=== PATIENT | male | born 1960 | race Caucasian/White ===

== ENCOUNTER 2017-08-05 13:00 | Inpatient (IN) | payer MEDICARE, OTHER ==
[~2017-08-05] VITALS: Ht 182.9 cm; Wt 93.0 kg
[2017-08-05 19:40] VITALS: BP 120/74
--- NOTE | 2017-08-05 19:40 | NUR ---
PATIENT ADMITTED ON 5250 HOLD FOR DTS.
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
[2017-08-05 20:17] VITALS: BP 120/74
[2017-08-05] MEDS ORDERED: ACETAMINOPHEN 325 MG TABLET PO PRN (20:30)
[2017-08-05] MEDS ORDERED: MAG HYDROX/AL HYDROX/SIMETH 30 ML UDC PO PRN (20:30)
[2017-08-05] MEDS ORDERED: METF500T4 PO (20:38)
[2017-08-05] MEDS ORDERED: LOXA25CA PO (20:38)
[2017-08-05] MEDS ORDERED: BUPR-51 PO (20:38)
[2017-08-05] MEDS ORDERED: LEVO150T8 PO (20:38)
[2017-08-05] MEDS ORDERED: SIMV10TA6 PO (20:38)
[2017-08-05] MEDS ORDERED: THIO5CAP2 PO (20:39)
[2017-08-05] MEDS ORDERED: DIVA500T54 PO (20:39)
[2017-08-05] MEDS ORDERED: IBUP-1482 PO (20:39)
[2017-08-05] MEDS ORDERED: CLIN300C97 PO (20:39)
[2017-08-05] MEDS ORDERED: CLOZ100T PO (20:39)
[2017-08-05] MEDS ORDERED: GLIM2TAB2 PO (20:39)
[2017-08-05] MEDS ORDERED: CITA20TA11 PO (20:39)
[2017-08-05] MEDS ORDERED: TRAM50TA2 PO (20:39)
[2017-08-05] MEDS: TEMAZEPAM 7.5 MG CAPSULE PO PRN (21:53)
--- NOTE | 2017-08-05 21:53 | NUR ---
GPS RN NOTES: PATIENT ALERT AND ORIENTED X4, PATIENT COMPLAINED UNABLE TO SLEEP. PATIENT IS REQUESTING RESTORIL. V/S STABLE. RESTORIL 7.5MG PO GIVEN ORDERED, TOLERATED WELL. WILL CONTINUE TO ASSESS PATIENT SAFETY AND BEHAVIOR [id number] AND MONITOR HOURS OF SLEEP.
[2017-08-06] MEDS ORDERED: Z GUARD REMEDY 2 OZ OINT TP PRN (07:00)
[2017-08-06 07:23] LABS: ALBUMIN 2.8 g/dL (3.4-5.0); BILIRUBIN,TOTAL 0.7 mg/dL (0.2-1.0); CALCIUM, SERUM 9.5 mg/dL (8.5-10.1); CREATININE 1.2 mg/dL (0.6-1.3); POTASSIUM 4.1 mmol/L (3.5-5.1); TOTAL PROTEIN, SERUM 6.5 g/dL (6.4-8.2)
[2017-08-06 07:25] LABS: CHOLESTEROL 213 mg/dL (<200); HDL CHOLESTEROL 34 mg/dL (40-60); LDL 134 mg/dL (0-99); TRIGLYCERIDES 179 mg/dL (30-150)
[2017-08-06 08:28] VITALS: BP 122/71
[2017-08-06] MEDS ORDERED: TRAMADOL HCL 50 MG TABLET PO PRN (11:00)
[2017-08-06] MEDS ORDERED: IBUPROFEN 800 MG TABLET PO PRN (11:00)
[2017-08-06] MEDS: Z GUARD REMEDY 2 OZ OINT TP SCH (11:38)
--- NOTE | 2017-08-06 15:15 | NUR ---
Initial Discharge Note: Patient lives alone in an [address] [place] [address]. . Patient stated that he may want to go to a half-way Facility or return home upon discharge. silk worker attempted to contact patient's sister Liliana Wang ([phone]) and patient's [id number] Raul Oliveros ([phone]). However, they were unavailable. silk worker left them a voicemail with her direct contact information. silk worker will help form a safe and proper discharge.
[2017-08-06] MEDS: LORAZEPAM 0.5 MG TABLET PO PRN (15:28)
[2017-08-06 15:40] VITALS: BP 139/60
[2017-08-06 16:28] LABS: HEMATOCRIT 38 % (39-51); HEMOGLOBIN 12.8 g/dL (13.5-17.5); MEAN CORPUSCULAR HEMOGLOBIN 31 PG (26.0-33.0); MEAN CORPUSCULAR VOLUME 92 fL (80-96); RED BLOOD CELL COUNT(AUTO) 4.11 MIL/uL (4.5-6.0)
[2017-08-06 16:29] LABS: BASOPHILS % (AUTO) 1.2 % (0.0-2.0); EOSINOPHILS % (AUTO) 2.3 % (0.0-6.0); LYMPHOCYTES % (AUTO) 21.8 % (20.0-44.0); MEAN CORPUSCULAR HGB CONC 34 g/dl (31.0-36.0); MONOCYTES % (AUTO) 10.2 % (2.0-12.0); NEUTROPHILS % (AUTO) 64.5 % (43.0-81.0); PLATELET COUNT (AUTO) 260 /CMM (150-450); RDW COEFFICIENT OF VARIATION 12.1 (11.5-15.0)
[2017-08-06 16:33] LABS: WHITE BLOOD COUNT (AUTO) 6.7 K/uL (4.3-11.0)
[2017-08-06] MEDS: METFORMIN 500 MG TABLET PO SCH (17:54)
--- NOTE | 2017-08-06 18:00 | NUR ---
LT. HIP STAPES INTACT,HOME MEDS RECONCILED.MEDICATED WITH KLONOPIN AT 1526.
[2017-08-06 19:59] VITALS: BP 131/78
[2017-08-06 20:00] VITALS: BP 131/78
[2017-08-06] MEDS: CLOZAPINE 100 MG TABLET PO SCH (21:14)
[2017-08-06] MEDS: SIMVASTATIN 10 MG TABLET PO SCH (21:14)
[2017-08-06] MEDS: TEMAZEPAM 7.5 MG CAPSULE PO PRN (21:14)
--- NOTE | 2017-08-07 06:45 | NUR ---
GPS CLOSING NOTES RESTING IN BED, TOLERATING ROOM AIR 98%, IN STABLE CONDITION. NO S/S OF DISTRESS, KEPT CLEAN AND DRY AND COMFORTABLE, FREQUENT VISUAL CHECK EVERY 2 HOURS FOR SAFETY, NEEDS ATTENDED AND ANTICIPATED. NURSING CARE RENDERED. ON LOW BED AT ALL TIMES. SAFE HAZARD FREE ENVIRONMENT.
[2017-08-07 07:59] VITALS: BP 119/81
[2017-08-07] MEDS: METFORMIN 500 MG TABLET PO SCH ×2 (08:18→18:15)
[2017-08-07] MEDS: ESCITALOPRAM OXALATE (10 MG) 10 MG TABLET PO SCH (08:18)
[2017-08-07] MEDS: LEVOTHYROXINE SODIUM 50 MCG TABLET PO SCH (08:18)
[2017-08-07] MEDS: Z GUARD REMEDY 2 OZ OINT TP SCH (08:20)
[2017-08-07] MEDS ORDERED: THIOTHIXENE 5 MG CAPSULE PO SCH (09:00)
--- NOTE | 2017-08-07 09:47 | NUR ---
SW spoke with pt's sister Liliana Wang ([phone]). Liliana expressed her concerns regarding her brother and his placement. Liliana suggest facilities [facility] the [facility] so that she can help support her brother. SW will discuss with patient and treatment team.
--- NOTE | 2017-08-07 10:40 | NUR ---
WOUND CARE CONSULT: PT IS AMBULATORY AND CONTINENT. LEFT HIP INCISION NOTED TO BE CLOSED WITH JOSE ELIAS, NO DRAINAGE NOTED. RECOMMEND SURGICAL FOLLOW UP. LEFT ARM LARGE AREA OF SKIN TEARS NOTED. RECOMMENDATIONS MADE FOR WOUND CARE AND SKIN PROTECTION. DISCUSSED WITH NURSING STAFF. WILL SEE PRNZack DIAZ IN AGREEMENT WITH PLAN OF CARE. CURRENT ANDREW SCORE IS 19.
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
[2017-08-07] MEDS: NICOTINE PATCH (21MG) 21 MG PATCH.TD24 TD SCH (15:57)
[2017-08-07] MEDS: LORAZEPAM 0.5 MG TABLET PO PRN (15:57)
--- NOTE | 2017-08-07 15:57 | NUR ---
medicated with ativan 0.5 mg po.
[2017-08-07 16:11] VITALS: BP 128/88
[2017-08-07 20:04] VITALS: BP 127/76
[2017-08-07] MEDS: SIMVASTATIN 10 MG TABLET PO SCH (21:00)
[2017-08-07] MEDS: CLOZAPINE 100 MG TABLET PO SCH (21:01)
[2017-08-07] MEDS: TEMAZEPAM 7.5 MG CAPSULE PO PRN ×2 (21:01→22:22)
--- NOTE | 2017-08-08 05:39 | NUR ---
PATIENT ALERT ORIENTED X3 ,AMBULATE WITH WALKER , MED COMPLIANT , POSITIVE HEARING VOCIES. C/O INSOMNIA RESTORIL 7.5 MG ADMINISTRATED SLEPT WELL, CONT TO MONITOR. ,
--- NOTE | 2017-08-08 07:15 | NUR ---
RN OPENING NOTES PT AAO4. SITTING UP ON EDGE OF BED. DENIES SI/AVH. LW DRSG CDI. L-HIP DRSG CDI. AMBL FWW INDEP. GOOD APPETITE. WILL CONT TO MONITOR CLOSELY.
[2017-08-08] MEDS: NICOTINE PATCH (21MG) 21 MG PATCH.TD24 TD SCH (07:57)
[2017-08-08] MEDS: ESCITALOPRAM OXALATE (10 MG) 10 MG TABLET PO SCH (07:58)
[2017-08-08] MEDS: Z GUARD REMEDY 2 OZ OINT TP SCH (07:58)
[2017-08-08] MEDS: LEVOTHYROXINE SODIUM 50 MCG TABLET PO SCH (07:58)
[2017-08-08] MEDS: METFORMIN 500 MG TABLET PO SCH ×2 (07:58→17:20)
[2017-08-08 08:17] VITALS: BP 116/70
[2017-08-08] MEDS ORDERED: BLOOD SUGAR DIAGNOSTIC 1 EACH STRIP IN ONE (08:30)
[2017-08-08] MEDS: BLOOD SUGAR DIAGNOSTIC 1 EACH STRIP IN SCH ×3 (12:55→21:11)
[2017-08-08] MEDS: MAGNESIUM HYDROXIDE 30 ML UDC PO PRN (12:56)
--- NOTE | 2017-08-08 14:17 | NUR ---
AFUA spoke with patient at length regarding placement. AFUA informed patient that some flexibility is needed in regards to placement / location / length of stay. AFUA stated that SW will try the couple of facilities that patient and his sister suggested, but that options may be limited due to a number of factors. SW stated that she will do her best to secure a nursing facility for patient, but that a "plan B" needs to be in place in the even that a nursing facility does not work out. Patient asked social studies department chair if it will be easier to find placement if he starts to deny his suicidal ideation or if SW takes out that part of his history. SW informed patient that she cannot omit anything from his records, as that would be unethical and unlawful. AFUA also told patient that being dishonest about his suicidal ideation will not help secure placement and that it will be detrimental to his overall well-being. Dr. Tate was made aware of these statements, as she is covering for Dr. Taylor. AFUA Ascencio also spoke with pt's sister, Liliana. Liliana asked if she can meet with SW and patient to discuss discharge plan. AFUA Ascencio asked if Liliana can come around 4pm. Liliana stated that she will try to make that time. AFUA Jamison will also be present at the meeting as she will be overseeing this case starting next week [Sunday 08/12].
--- NOTE | 2017-08-08 14:28 | NUR ---
AFUA received a fax from Anthony Reyes LCSW. Anthony Reyes is pt's therapist from [facility] [[facility] The fax included an Authorization for Request of Use/Disclosure of Protected health Information for patient to sign in order for SW to release certain part of pt's medical records [medication, assessment, diagnosis]. This was allow the after-care treatment team to better assist the patient. AFUA spoke with pt and explained the nature of the forms. AFUA explained that patient did not have to sign the form if he did not wish to disclose the information. Patient informed AFUA that he had no problem with it. AFUA faxed over the release form as well as requested documents to Anthony Reyes LCSW [phone] ext. [phone] / fax number [phone]. Addendum: 08/08/17 at 1556 by LAURA CAAL Please note that AFUA received a transaction report that stated "fax number was busy." AFUA made two other attempts, which also did not go through. AFUA called Anthony at the telephone number listed on the original fax cover sheet and was informed by cash management specialist that there is no one by that name and that the extension was wrong : "All our extensions start with a 2"
[2017-08-08 15:34] VITALS: BP 119/75
--- NOTE | 2017-08-08 17:58 | NUR ---
RN CLOSING NOTES PT AAO4. SITTING AT DINNER TABLE. DENIES SI/AVH. LW DRSG CDI. L-HIP DRSG CDI. CHANGED DRSGS. AMBL FWW INDEP. GOOD APPETITE. GETS ALONG WELL W/ STAFF AND PATIENTS. WILL ENDORSE TO [facility] MARVIN.
[2017-08-08] MEDS: LORAZEPAM 0.5 MG TABLET PO PRN (19:34)
--- NOTE | 2017-08-08 19:34 | NUR ---
GPS RN NOTES: PATIENT A/O X3, PATIENT IS ANXIOUS. PATIENT IS REQUESTING ATIVAN. V/S STABLE. ATIVAN 0.5MG PO GIVEN ORDERED. WILL CONTINUE TO MONITOR [id number] FOR SAFETY AND BEHAVIOR.
[2017-08-08 20:00] VITALS: BP 130/80
[2017-08-08] MEDS: CLOZAPINE 100 MG TABLET PO SCH (21:05)
[2017-08-08] MEDS: SIMVASTATIN 10 MG TABLET PO SCH (21:06)
[2017-08-08] MEDS: TEMAZEPAM 7.5 MG CAPSULE PO PRN (21:12)
--- NOTE | 2017-08-08 21:15 | NUR ---
GPS RN NOTES: PATIENT ALERT AND ORIENTED X3, PATIENT COMPLAINED UNABLE TO SLEEP. PATIENT IS REQUESTING RESTORIL. V/S STABLE. RESTORIL 7.5MG PO GIVEN ORDERED, TOLERATED WELL. WILL CONTINUE TO ASSESS PATIENT SAFETY AND BEHAVIOR [id number] AND MONITOR HOURS OF SLEEP.
--- NOTE | 2017-08-08 22:00 | NUR ---
GPS RN NOTES: SCHEDULED ACCUCHECK AT 2200 BS RESULT - 200MG/DL. PAGED DR. IQBAL REGARDING PATIENT BLOOD SUGAR. ORDERED MODERATE SLIDING SCALE NOTED AND CARRIED OUT. PATIENT MADE AWARE OF THE NEW ORDER.
[2017-08-08] MEDS: *INSULIN REGULAR(HUMULIN R)HUM 100 UNIT/ML VIAL SQ PRN (23:00)
[2017-08-08] MEDS: BLOOD SUGAR DIAGNOSTIC 1 EACH STRIP VI SCH (23:00)
[2017-08-08] MEDS ORDERED: DEXTROSE 50%-WATER 50 ML DISP.SYRIN IV PRN (23:00)
[2017-08-08] MEDS ORDERED: INSULIN REGULAR, HUMAN 100 UNIT/ML 3 ML VIAL ONE (23:13)
[2017-08-09] MEDS: BLOOD SUGAR DIAGNOSTIC 1 EACH STRIP IN SCH ×4 (07:45→21:22)
[2017-08-09] MEDS: BLOOD SUGAR DIAGNOSTIC 1 EACH STRIP VI SCH ×4 (07:46→21:24)
[2017-08-09] MEDS: NICOTINE PATCH (21MG) 21 MG PATCH.TD24 TD SCH (07:50)
[2017-08-09] MEDS: ESCITALOPRAM OXALATE (10 MG) 10 MG TABLET PO SCH (07:50)
[2017-08-09] MEDS: LEVOTHYROXINE SODIUM 50 MCG TABLET PO SCH (07:50)
[2017-08-09] MEDS: METFORMIN 500 MG TABLET PO SCH ×2 (07:50→17:06)
[2017-08-09] MEDS: Z GUARD REMEDY 2 OZ OINT TP SCH (07:51)
[2017-08-09 08:00] VITALS: BP 125/74
--- NOTE | 2017-08-09 09:31 | NUR ---
GPS/RN PT REFUSED INSULIN COVERAGE FOR ACCUCHECK WITH HT=597. OFFERED X3. PT STATES: " I HAVE METFORMIN..."
--- NOTE | 2017-08-09 12:14 | NUR ---
GPS/RN PT REFUSED INSULIN COVERAGE. STATES : " I HAD IT BEFORE AND IT DROPS MY BLOOD SUGAR LEVEL TOO LOW..."
[2017-08-09] MEDS: MAGNESIUM HYDROXIDE 30 ML UDC PO PRN (12:52)
[2017-08-09 16:00] VITALS: BP 121/77
--- NOTE | 2017-08-09 16:48 | NUR ---
SW met with pt's sister Liliana Wang ([phone]) and with pt to discuss placement. Liliana provided SW with a list of facilities she would like to be faxed. SW will follow up on Saturday. AFUA explained that flexibility is important in the even that pt is placed in a SNF that the family did not mention/approve of. Liliana stated that she understood. Liliana asked SW to follow up on pt's medication and wondered why the Clozapine dose was not being increased. SW stated that the question is more appropriate for the nurses and psychiatrists. SW followed up with pt's nurse regarding the education and nurse stated that no orders were given from psychiatric to adjust that specific mediation.
[2017-08-09 20:00] VITALS: BP 126/77
[2017-08-09] MEDS: SIMVASTATIN 10 MG TABLET PO SCH (21:00)
[2017-08-09] MEDS: CLOZAPINE 100 MG TABLET PO SCH (21:00)
[2017-08-09] MEDS: *INSULIN REGULAR(HUMULIN R)HUM 100 UNIT/ML VIAL SQ PRN (21:32)
[2017-08-09] MEDS: TEMAZEPAM 7.5 MG CAPSULE PO PRN (22:12)
[2017-08-10 07:39] VITALS: BP 105/69
[2017-08-10] MEDS: BLOOD SUGAR DIAGNOSTIC 1 EACH STRIP VI SCH ×4 (07:51→21:26)
[2017-08-10] MEDS: BLOOD SUGAR DIAGNOSTIC 1 EACH STRIP IN SCH ×4 (07:51→21:25)
[2017-08-10] MEDS: ESCITALOPRAM OXALATE (10 MG) 10 MG TABLET PO SCH (08:09)
[2017-08-10] MEDS: NICOTINE PATCH (21MG) 21 MG PATCH.TD24 TD SCH (08:09)
[2017-08-10] MEDS: LEVOTHYROXINE SODIUM 50 MCG TABLET PO SCH (08:09)
[2017-08-10] MEDS: METFORMIN 500 MG TABLET PO SCH ×2 (08:09→17:14)
[2017-08-10] MEDS: Z GUARD REMEDY 2 OZ OINT TP SCH (09:09)
[2017-08-10] MEDS: MAGNESIUM HYDROXIDE 30 ML UDC PO PRN (09:09)
--- NOTE | 2017-08-10 09:10 | NUR ---
GPS/RN PT REFUSED INSULIN COVERAGE. OFFERED X3
[2017-08-10] MEDS: INSULIN REGULAR, HUMAN 100 UNIT/ML 3 ML VIAL SQ PRN (12:40)
[2017-08-10 16:00] VITALS: BP 117/71
--- NOTE | 2017-08-10 18:34 | NUR ---
GPS/RN @ 8794 HU=[id number]. PT REFUSED INSULIN COVERAGE
[2017-08-10 20:00] VITALS: BP 113/74
[2017-08-10] MEDS: CLOZAPINE 100 MG TABLET PO SCH (21:02)
[2017-08-10] MEDS: SIMVASTATIN 10 MG TABLET PO SCH (21:02)
[2017-08-10] MEDS: *INSULIN REGULAR(HUMULIN R)HUM 100 UNIT/ML VIAL SQ PRN (21:27)
[2017-08-10] MEDS: TEMAZEPAM 7.5 MG CAPSULE PO PRN (22:01)
[2017-08-11 08:07] VITALS: BP 139/83
--- NOTE | 2017-08-11 08:26 | NUR ---
GPS/RN DR FARLEY SEEN THE PT WITH NEW ORDERS FOR ORTHO CONSULT. CALLED DR QUINTANA OFFICE FOR CONSULT Luis Antonio Quintana MD Orthopaedic Surgery [facility] Address [address] [place] [address]
--- NOTE | 2017-08-11 08:35 | NUR ---
GPS/RN PER ORTHO PROMOTIONAL MARKETING ANALYST DR LOPEZ: PT WILL BE SEEN ON SATURDAY, [facility] CALL OFFICE AFTER 0900 TO ARRANGE THE CONSULT
[2017-08-11] MEDS: BLOOD SUGAR DIAGNOSTIC 1 EACH STRIP IN SCH ×4 (08:56→21:42)
[2017-08-11] MEDS: ESCITALOPRAM OXALATE (10 MG) 10 MG TABLET PO SCH (08:56)
[2017-08-11] MEDS: METFORMIN 500 MG TABLET PO SCH ×2 (08:56→16:37)
[2017-08-11] MEDS: LEVOTHYROXINE SODIUM 50 MCG TABLET PO SCH (08:56)
[2017-08-11] MEDS: NICOTINE PATCH (21MG) 21 MG PATCH.TD24 TD SCH (08:56)
[2017-08-11] MEDS: BLOOD SUGAR DIAGNOSTIC 1 EACH STRIP VI SCH (08:57)
[2017-08-11] MEDS: Z GUARD REMEDY 2 OZ OINT TP SCH (09:02)
[2017-08-11] MEDS: INSULIN REGULAR, HUMAN 100 UNIT/ML 3 ML VIAL SQ PRN ×2 (09:04→12:23)
[2017-08-11] MEDS: ASPIRIN 325 MG TABLET PO SCH (09:13)
[2017-08-11] MEDS ORDERED: FIXODENT PO PRN (09:30)
[2017-08-11] MEDS: LORAZEPAM 0.5 MG TABLET PO PRN (11:01)
[2017-08-11] MEDS: MAGNESIUM HYDROXIDE 30 ML UDC PO PRN (11:01)
--- NOTE | 2017-08-11 11:01 | NUR ---
RN NOTES ADMINISTERED ATIVAN 0.5 MG PO PRN FOR ANXIETY, AND MILK OF MAGNESIA 30 MG/ML FOR CONSTIPATION PER PATIENT REQUEST, V/S TAKE BP -139/83, P-74, CONTINUED MONITORING. ENCOURAGED TO INCREASE FLUID INTAKE, AND AMBULATE.
[2017-08-11] MEDS: Fluoxetine 10 mg capsule PO SCH (12:38)
[2017-08-11 16:00] VITALS: BP 119/79
[2017-08-11 19:35] VITALS: BP 141/74
[2017-08-11] MEDS: CLOZAPINE 100 MG TABLET PO SCH (21:42)
[2017-08-11] MEDS: SIMVASTATIN 10 MG TABLET PO SCH (21:42)
[2017-08-11] MEDS: TEMAZEPAM 7.5 MG CAPSULE PO PRN (21:43)
--- NOTE | 2017-08-11 21:43 | NUR ---
RN NOTES ADMINISTERED RESTORIL 7.5MG ORDERED BY PATIENT REQUEST FOR INSOMNIA. WILL CONTINUE TO MONITOR.
[2017-08-11] MEDS: *INSULIN REGULAR(HUMULIN R)HUM 100 UNIT/ML VIAL SQ PRN (21:46)
[2017-08-12 08:09] VITALS: BP 118/67
[2017-08-12] MEDS: Fluoxetine 10 mg capsule PO SCH (08:22)
[2017-08-12] MEDS: LEVOTHYROXINE SODIUM 50 MCG TABLET PO SCH (08:22)
[2017-08-12] MEDS: ESCITALOPRAM OXALATE (10 MG) 10 MG TABLET PO SCH (08:22)
[2017-08-12] MEDS: ASPIRIN 325 MG TABLET PO SCH (08:22)
[2017-08-12] MEDS: METFORMIN 500 MG TABLET PO SCH ×2 (08:22→17:08)
[2017-08-12] MEDS: IBUPROFEN 200 MG TABLET PO PRN ×2 (08:22→17:08)
[2017-08-12] MEDS: NICOTINE PATCH (21MG) 21 MG PATCH.TD24 TD SCH (08:22)
[2017-08-12] MEDS: INSULIN REGULAR, HUMAN 100 UNIT/ML 3 ML VIAL SQ PRN (08:30)
[2017-08-12] MEDS: BLOOD SUGAR DIAGNOSTIC 1 EACH STRIP IN SCH ×4 (09:00→21:20)
[2017-08-12] MEDS: Z GUARD REMEDY 2 OZ OINT TP SCH (09:01)
--- NOTE | 2017-08-12 13:52 | NUR ---
At the request of pt and pt's sister, LilianaAFUA faxed over the following facilities: [facility] [phone] / fax number [phone] [facility] [phone] / fax number [phone] [facility] [phone] / fax number [phone]
[2017-08-12 15:45] VITALS: BP 128/76
[2017-08-12] MEDS: MAGNESIUM HYDROXIDE 30 ML UDC PO PRN (15:57)
[2017-08-12 19:55] VITALS: BP 123/75
[2017-08-12] MEDS: CLOZAPINE 100 MG TABLET PO SCH (21:08)
[2017-08-12] MEDS: SIMVASTATIN 10 MG TABLET PO SCH (21:08)
[2017-08-12] MEDS: TEMAZEPAM 7.5 MG CAPSULE PO PRN (21:09)
[2017-08-12] MEDS: *INSULIN REGULAR(HUMULIN R)HUM 100 UNIT/ML VIAL SQ PRN (21:34)
[2017-08-13 08:00] VITALS: BP 112/75
--- NOTE | 2017-08-13 08:00 | NUR ---
GPS/RN BS 180, ADMINISTERED 3 UNITS REGULAR INSULIN PER SLIDING SCALE, WILL CONTINUE TO MONITOR.
[2017-08-13] MEDS: METFORMIN 500 MG TABLET PO SCH ×2 (08:13→16:45)
[2017-08-13] MEDS: ESCITALOPRAM OXALATE (10 MG) 10 MG TABLET PO SCH (08:13)
[2017-08-13] MEDS: NICOTINE PATCH (21MG) 21 MG PATCH.TD24 TD SCH (08:13)
[2017-08-13] MEDS: ASPIRIN 325 MG TABLET PO SCH (08:13)
[2017-08-13] MEDS: LEVOTHYROXINE SODIUM 50 MCG TABLET PO SCH (08:13)
[2017-08-13] MEDS: BLOOD SUGAR DIAGNOSTIC 1 EACH STRIP IN SCH ×4 (08:14→21:03)
[2017-08-13] MEDS: INSULIN REGULAR, HUMAN 100 UNIT/ML 3 ML VIAL SQ PRN ×2 (08:20→12:19)
[2017-08-13] MEDS: Fluoxetine 10 mg capsule PO SCH (08:31)
[2017-08-13] MEDS: Z GUARD REMEDY 2 OZ OINT TP SCH (09:00)
--- NOTE | 2017-08-13 11:23 | NUR ---
AFUA followed up with: [facility] [phone] / fax number [phone]... was informed that there is no male beds available at the facility and will not be for the next two weeks. [facility] [phone] / fax number [phone]...AFUA left her contact information for Jace at admissions. AFUA was informed by Isatu from bilingual medical receptionist that Jace stepped out and will contact AFUA after she returns. [facility] [phone] / fax number [phone]...AFUA was informed that there are no beds available for the patient.
--- NOTE | 2017-08-13 11:52 | NUR ---
Discharge Planning: AFUA faxed over an inquiry to [facility], [place] [address], / fax number [phone]. AFUA to follow up. Addendum: 08/13/17 at 1356 by LAURA CAAL Name of facility is [facility]
--- NOTE | 2017-08-13 12:00 | NUR ---
RN-CO: MARIA DE JESUS-PRIMARY RN CALLED DR LIU ) REGARDING LEFT HIP STAPLE REMOVAL , AWAITING TO CALL BACK.
--- NOTE | 2017-08-13 12:00 | NUR ---
GPS/RN BS 171, ADMINISTERED 3 UNITS REGULAR INSULIN PER SLIDING SCALE, WILL CONTINUE TO MONITOR.
--- NOTE | 2017-08-13 12:07 | NUR ---
Discharge Planning: AFUA faxed an inquiry to [facility] Address: [address] [place] [address] / fax number [phone]. AFUA will follow up.
[2017-08-13] MEDS: risperiDONE 1 MG TABLET PO SCH ×2 (12:16→16:45)
--- NOTE | 2017-08-13 13:56 | NUR ---
Discharge Update: AFUA heard from Makayla from [facility] [address], [place] [address], / fax number [phone] who informed AFUA that the facility is unable to provide care for patient.
--- NOTE | 2017-08-13 14:30 | NUR ---
GPS/RN SPOKE WITH RN AT DR LIU'S OFFICE REGARDING CONSULT AND STAPLE REMOVAL. STATED THAT HE WOULD HAVE TO TALK WITH DR LIU REGARDING CONSULT AND WOULD FOLLOW UP AFTER HE SPEAKS WITH HIM. AWAITING CALL BACK.
[2017-08-13 15:31] VITALS: BP 122/73
[2017-08-13 20:23] VITALS: BP 120/68
[2017-08-13] MEDS: TEMAZEPAM 7.5 MG CAPSULE PO PRN (20:55)
[2017-08-13] MEDS: CLOZAPINE 100 MG TABLET PO SCH (21:03)
[2017-08-13] MEDS: SIMVASTATIN 10 MG TABLET PO SCH (21:03)
[2017-08-13] MEDS: *INSULIN REGULAR(HUMULIN R)HUM 100 UNIT/ML VIAL SQ PRN (21:05)
[2017-08-14] MEDS: NICOTINE PATCH (21MG) 21 MG PATCH.TD24 TD SCH (08:19)
[2017-08-14] MEDS: BLOOD SUGAR DIAGNOSTIC 1 EACH STRIP IN SCH ×4 (08:20→21:01)
[2017-08-14] MEDS: LEVOTHYROXINE SODIUM 50 MCG TABLET PO SCH (08:20)
[2017-08-14] MEDS: ASPIRIN 325 MG TABLET PO SCH (08:20)
[2017-08-14] MEDS: ESCITALOPRAM OXALATE (10 MG) 10 MG TABLET PO SCH (08:21)
[2017-08-14] MEDS: risperiDONE 1 MG TABLET PO SCH ×2 (08:21→17:01)
[2017-08-14] MEDS: METFORMIN 500 MG TABLET PO SCH ×2 (08:21→17:01)
[2017-08-14] MEDS: Fluoxetine 10 mg capsule PO SCH (08:42)
[2017-08-14] MEDS: INSULIN REGULAR, HUMAN 100 UNIT/ML 3 ML VIAL SQ PRN (08:43)
[2017-08-14] MEDS: Z GUARD REMEDY 2 OZ OINT TP SCH (08:44)
[2017-08-14 09:03] VITALS: BP 107/71
--- NOTE | 2017-08-14 10:42 | NUR ---
GPS RN NOTE: CALLED DR CORTES OFFICE REGARDING CONSULT AND STAPLE REMOVAL. HAD CALL BACK FROM WILMA CURTIS JOSE ELIAS WILL BE REMOVED WITH OUTPATIENT PROCEDURE, UNLESS PT WILL STAID UNTIL SATURDAY.JOAN NURSE QUITA AWARE WILL CONTINUE MONITORING FOR SAFETY AND BEHAVIOR Q 15 MIN
[2017-08-14] MEDS: IBUPROFEN 200 MG TABLET PO PRN ×2 (12:02→21:24)
--- NOTE | 2017-08-14 16:20 | NUR ---
Discharge Planning: AFUA heard from CJ from [facility] Address: [address] [place] [address] / fax number [phone], who informed SW that patient was accepted into their facility. ADRIANA stated that a bed will be available on Saturday, but he will attempt to push for Saturday. AFUA faxed over updated progress notes. SW to follow up on Saturday.
--- NOTE | 2017-08-14 16:22 | NUR ---
Family Update: SW spoke with Liliana Wang ([phone]) who was in agreement with the [facility].
[2017-08-14 16:29] VITALS: BP 98/61
[2017-08-14 20:03] VITALS: BP 141/75
[2017-08-14] MEDS: TEMAZEPAM 7.5 MG CAPSULE PO PRN (20:59)
[2017-08-14] MEDS: CLOZAPINE 100 MG TABLET PO SCH (21:00)
[2017-08-14] MEDS: SIMVASTATIN 10 MG TABLET PO SCH (21:00)
[2017-08-14] MEDS: *INSULIN REGULAR(HUMULIN R)HUM 100 UNIT/ML VIAL SQ PRN (21:12)
[2017-08-15 08:04] VITALS: BP 134/75
[2017-08-15] MEDS: Fluoxetine 10 mg capsule PO SCH (08:17)
[2017-08-15] MEDS: ESCITALOPRAM OXALATE (10 MG) 10 MG TABLET PO SCH (08:17)
[2017-08-15] MEDS: ASPIRIN 325 MG TABLET PO SCH (08:18)
[2017-08-15] MEDS: BLOOD SUGAR DIAGNOSTIC 1 EACH STRIP IN SCH ×4 (08:18→21:59)
[2017-08-15] MEDS: LEVOTHYROXINE SODIUM 50 MCG TABLET PO SCH (08:18)
[2017-08-15] MEDS: NICOTINE PATCH (21MG) 21 MG PATCH.TD24 TD SCH (08:18)
[2017-08-15] MEDS: METFORMIN 500 MG TABLET PO SCH ×2 (08:18→16:46)
[2017-08-15] MEDS: risperiDONE 1 MG TABLET PO SCH ×2 (08:18→16:46)
[2017-08-15] MEDS: INSULIN REGULAR, HUMAN 100 UNIT/ML 3 ML VIAL SQ PRN (08:22)
[2017-08-15] MEDS: Z GUARD REMEDY 2 OZ OINT TP SCH (08:28)
[2017-08-15] MEDS: IBUPROFEN 200 MG TABLET PO PRN ×2 (08:31→16:45)
[2017-08-15 15:36] VITALS: BP 122/78
[2017-08-15 20:00] VITALS: BP 107/66
[2017-08-15] MEDS: SIMVASTATIN 10 MG TABLET PO SCH (21:59)
[2017-08-15] MEDS: TEMAZEPAM 7.5 MG CAPSULE PO PRN (21:59)
[2017-08-15] MEDS: CLOZAPINE 100 MG TABLET PO SCH (21:59)
[2017-08-16] MEDS: BLOOD SUGAR DIAGNOSTIC 1 EACH STRIP IN SCH ×4 (07:43→22:04)
[2017-08-16] MEDS: INSULIN REGULAR, HUMAN 100 UNIT/ML 3 ML VIAL SQ PRN (07:45)
[2017-08-16 07:52] VITALS: BP 121/78
[2017-08-16] MEDS: LEVOTHYROXINE SODIUM 50 MCG TABLET PO SCH (08:03)
[2017-08-16] MEDS: METFORMIN 500 MG TABLET PO SCH ×2 (08:04→16:35)
[2017-08-16] MEDS: ASPIRIN 325 MG TABLET PO SCH (08:04)
[2017-08-16] MEDS: risperiDONE 1 MG TABLET PO SCH ×2 (08:04→16:35)
[2017-08-16] MEDS: IBUPROFEN 200 MG TABLET PO PRN ×2 (08:05→17:38)
[2017-08-16] MEDS: FLUOXETINE HCL 20 MG CAPSULE PO SCH (08:41)
[2017-08-16] MEDS: Z GUARD REMEDY 2 OZ OINT TP SCH (09:04)
[2017-08-16] MEDS: NICOTINE PATCH (21MG) 21 MG PATCH.TD24 TD SCH (10:23)
[2017-08-16] MEDS: MAGNESIUM HYDROXIDE 30 ML UDC PO PRN (14:07)
[2017-08-16] MEDS: LORAZEPAM 0.5 MG TABLET PO PRN (14:07)
--- NOTE | 2017-08-16 15:43 | NUR ---
Discharge Note: Patient will discharge to [facility] [address] [place] [address] via ambulance transportation arranged by social media marketer through [employer]. The trip number is [id number]. Patients sister, Liliana Wang [phone] has been notified. Patient will be seen by his plant attendant, Dr. Weber [address], [place] [phone] at the facility next week on August 21, 2017 at 2pm. Patient will be followed by the psychiatrist at the facility, Dr. Pollard [address] [address] [phone] and will be seen on 08/19/17 at 10am. Patient is not a smoker and does not abuse alcohol / substances.
[2017-08-16 16:08] VITALS: BP 105/60
[2017-08-16 20:02] VITALS: BP 112/68
[2017-08-16] MEDS: SIMVASTATIN 10 MG TABLET PO SCH (21:54)
[2017-08-16] MEDS: CLOZAPINE 100 MG TABLET PO SCH (21:54)
[2017-08-16] MEDS: TEMAZEPAM 7.5 MG CAPSULE PO PRN (21:54)
[2017-08-17] MEDS: BLOOD SUGAR DIAGNOSTIC 1 EACH STRIP IN SCH (07:40)
[2017-08-17 08:00] VITALS: BP 134/78
[2017-08-17] MEDS: IBUPROFEN 200 MG TABLET PO PRN (08:25)
[2017-08-17] MEDS: FLUOXETINE HCL 20 MG CAPSULE PO SCH (08:25)
[2017-08-17] MEDS: ASPIRIN 325 MG TABLET PO SCH (08:25)
[2017-08-17] MEDS: METFORMIN 500 MG TABLET PO SCH (08:25)
[2017-08-17] MEDS: MAGNESIUM HYDROXIDE 30 ML UDC PO PRN (08:26)
[2017-08-17] MEDS: LEVOTHYROXINE SODIUM 50 MCG TABLET PO SCH (08:26)
[2017-08-17] MEDS: risperiDONE 1 MG TABLET PO SCH (08:27)
[2017-08-17] MEDS: INSULIN REGULAR, HUMAN 100 UNIT/ML 3 ML VIAL SQ PRN (08:32)
--- NOTE | 2017-08-17 08:36 | NUR ---
DR. KUO GAVE AN ORDER TO D/C HOLD AND D/C TO [facility] AND TO CONTINUE SAME MEDS INCLUDING PRN AND TO FOLLOW UP WITH PSYCH AND MEDICAL DOCTORS. CALLED THE FACILITY AND SPOKE TO DUSTIN AND SAID THEY WILL ACCEPT THE PT. TODAY AND THE SISTER SLOANE MADE AWARE OF THE DISCHARGE.
--- NOTE | 2017-08-17 08:47 | NUR ---
RN-notes patient blood sugar was 177mg/dl, 3 units of R insulin given as ordered.
--- NOTE | 2017-08-17 09:18 | NUR ---
DR. FARLEY MADE AWARE OF THE DISCHARGE AND SAID OK FOR DISCHARGE AND RECONCILED THE MEDS.
[2017-08-17] MEDS: Z GUARD REMEDY 2 OZ OINT TP SCH (09:52)
[2017-08-17] MEDS: NICOTINE PATCH (21MG) 21 MG PATCH.TD24 TD SCH (09:52)
--- NOTE | 2017-08-17 11:15 | NUR ---
RN-NOTES PATIENT DISCHARGE TO [facility] TODAY. DR. KUO COVERING FOR DR. HUGHES TODAY AND DR. FARLEY AWARE AND AGREES OF PATIENT DISCHARGE.REPORT WAS GIVEN TO KERRIE ( TEST EXAMINER) . ALL DISCHARGE MEDICATIONS AND ORDERS WAS DISCUSS WITH THE PATIENT INCLUDING F/U WITH ORTHO DOCTOR WITH UNDERSTANDING. PATIENT DID NOT VERBALIZE SI/HI,DENIES VISUAL/AUDITORY HALLUCINATIONS AT THE TIME OF DISCHARGE. PATIENT SISTER SLOANE ) MADE AWARE OF THE DISCHARGE.PATIENT LEFT THE UNIT INSTABLE CONDITION, AWAKE,ALERT ORIENTED X3 AMBULATORY WITH WALKER. PATIENT LEFT THE UNIT WITH ALL HIS BELONGINGS INCLUDING HIS OWN WALKER. BILLET GRINDER BY AMBULANCE VIA GURNEY WITH TWO STAFF ASSIST.
== END 2017-08-17 11:10 | DRG 885 ==
LOC: GPS 18:55
PROVIDERS: ADMIT Psychiatry & Neurology Psychiatry; ATTEND Internal Medicine
DX: F25.9 Schizoaffective disorder, unspecified (principal); E11.9 Type 2 diabetes mellitus without complications; E03.9 Hypothyroidism, unspecified; Z73.6 Limitation of activities due to disability; E78.5 Hyperlipidemia, unspecified; F17.210 Nicotine dependence, cigarettes, uncomplicated; F32.9 Major depressive disorder, single episode, unspecified; F41.9 Anxiety disorder, unspecified; I10 Essential (primary) hypertension; F10.21 Alcohol dependence, in remission; Z96.649 Presence of unspecified artificial hip joint; F29 Unspecified psychosis not due to a substance or known physiological condition; Z79.84 Long term (current) use of oral hypoglycemic drugs
CPT/HCPCS: 36415; 80053-TC; 80061-TC; 82962-TC; 85025-TC; 87081-TC; A6253; A6402; J1815